=== PATIENT | male | born 1980 | race Hispanic/Latino ===

== ENCOUNTER 2022-03-21 16:18 | Emergency (ER) | payer SELFPAY ==
[~2022-03-21] VITALS: Ht 175.3 cm; Wt 82.0 kg
[2022-03-21] MEDS ORDERED: DIPHENHYDRAM50 M2 PO (21:56)
[2022-03-21] MEDS ORDERED: MEDDOSEPAK PO (21:56)
[2022-03-21] MEDS ORDERED: KEFLEX500 MG PO (21:56)
[2022-03-21 22:29] VITALS: BP 115/76
== END 2022-03-21 22:30 | disposition home or self-care (01) | DRG 916 ==
LOC: ED 16:18
DX: T78.40XA Allergy, unspecified, initial encounter (principal); W57.XXXA Bitten or stung by nonvenomous insect and other nonvenomous arthropods, initial encounter